=== PATIENT | female | born 1970 | race African-American/Black ===

== ENCOUNTER 2020-09-10 08:16 | Outpatient (REF) | payer BC, SELFPAY | END 2020-09-10 08:17 | disposition home or self-care (01) | LOC: HO.LAB 08:16 | PROVIDERS: PCP Family Medicine Adult Medicine; Visit Provider Internal Medicine | DX: Z20.828 Contact with and (suspected) exposure to other viral communicable diseases (principal) | CPT/HCPCS: 87635 ==

== ENCOUNTER 2022-01-13 09:20 | Outpatient (REF) | payer BC, SELFPAY ==
[2022-01-13 11:20] LABS: Hemoglobin 13.8 g/dl (12.0-16.0); Mean Corpuscular HGB Conc 31.4 g/dl (31.0-35.0); Mean Corpuscular Hemoglobin 26.5 pg (27.0-33.0); Mean Corpuscular Volume 84.6 fL (80.0-98.0); Mean Platelet Volume 12.4 fL (9.4-12.3); Platelet Count 274 X10*3/uL (160-400); White Blood Count 5.9 X10*3/uL (4.8-10.8)
[2022-01-13 11:34] LABS: Estimated Average Glucose 131 mg/dL; Hemoglobin A1c % 6.2 %
[2022-01-13 11:53] LABS: Alanine Aminotransferase 17 U/L (0-31); Albumin Level 4.1 g/dL (3.5-5.0); Alkaline Phosphatase 62 U/L (39-117); Anion Gap 12 (12-20); Aspartate Amino Transferase 15 U/L (5-31); Bilirubin Total 1.1 mg/dL (0.0-1.0); Blood Urea Nitrogen 14 mg/dL (9-16); Calcium 9.1 mg/dL (8.4-10.2); Carbon Dioxide 26 mmol/L (22-29); Chloride 104 mmol/L (96-108); Cholesterol 163 mg/dL; Estimated Glomerular Filt Rate > 60; Glucose Fasting 104 mg/dL (60-99); HDL Cholesterol 35 mg/dL; LDL Cholesterol Calculated 108 mg/dl; Potassium 4.4 mmol/L (3.3-5.1); Sodium 138 mmol/L (135-145); Total Protein 7.1 g/dL (6.5-8.0); Triglycerides 101 mg/dL
[2022-01-13 11:56] LABS: TSH reflex Free T4 0.86 uIU/mL (0.32-4.0)
== END 2022-01-13 09:21 | disposition home or self-care (01) ==
LOC: HO.HMGCLDS 09:20
PROVIDERS: PCP Physician Assistant; Visit Provider Physician Assistant
DX: Z13.29 Encounter for screening for other suspected endocrine disorder (principal); Z13.220 Encounter for screening for lipoid disorders; Z13.1 Encounter for screening for diabetes mellitus
CPT/HCPCS: 36415; 80053; 80061; 83036; 84443; 85027

== ENCOUNTER 2022-02-06 07:26 | Outpatient (REF) | payer BC, SELFPAY ==
--- NOTE | ~2022-02-06 | MM_ITS ---
EXAMINATION: MM SCREENING DIGITAL BREAST TOMOSYNTHESIS, BILATERAL CLINICAL INFORMATION: Screening. Asymptomatic. The lifetime risk of breast cancer based on the Tyrer-Cuzick Model is 8%. COMPARISON: Mammography: 10/19/2018, 08/22/2017, 07/21/2016 TECHNIQUE: Digital breast tomosynthesis is performed in both the craniocaudal and mediolateral oblique views along with computer-aided detection (CAD). Synthesized 2D images are generated from the tomosynthesis. FINDINGS: The breasts are almost entirely fatty (ACR BI-RADS breast composition Category a). There are no significant masses, abnormal calcifications, or other abnormalities. Background stromal markings are stable. No developing density. No significant changes. MM/MM tomosynthesis screening BI IMPRESSION: No mammographic evidence of malignancy. ASSESSMENT: BI-RADS 1: Negative RECOMMENDATION: Routine annual mammography screening. This patient's information was entered into a reminder system with a target due date for their next mammogram.
== END 2022-02-06 07:27 | disposition home or self-care (01) ==
LOC: HO.MAMMO 07:26
PROVIDERS: PCP Physician Assistant; Visit Provider Physician Assistant
DX: Z12.31 Encounter for screening mammogram for malignant neoplasm of breast (principal)
CPT/HCPCS: 77063; 77067

== ENCOUNTER → 2022-02-27 07:58 | Outpatient (BNVA) | payer BC, SELFPAY | PROVIDERS: PCP Physician Assistant; Referring Provider Physician Assistant; Visit Provider Physician Assistant | DX: Z13.89 Encounter for screening for other disorder (principal) ==

== ENCOUNTER 2022-05-30 09:56 | Day surgery (SDC) | payer BC, SELFPAY ==
--- NOTE | 2022-05-29 09:38 | HO.ANESPROP2 ---
Documented by User: Jayla Lorenz NP 05/29/22 09:54 HPI - Anesthesia Eval Consult details Narrative: 51yo F for Colonoscopy PMFSH Active Problems Active Problems: All Active Problems (Updated 02/27/22 @ 08:29 by Yuly Leon PA-C) Keratosis (Acute) Breast cancer screening (Acute) Colon cancer screening (Acute) Obese (Acute) Screening for hypothyroidism (Acute) Screening for hypercholesterolemia (Acute) Screening for diabetes mellitus (DM) (Acute) Annual physical exam (Acute) Bronchitis (Acute) Motion sickness (Acute) Surgical History Surgical History History of tubal ligation Social History Social History Housing: House Alcohol intake: current Alcohol intake frequency: holidays/special occasions only Patient Tobacco Use Status: Never used Tobacco e-Cigarette/Vaping Use: Never Used Second Hand Smoke Exposure: Yes Advance Directives: No Advance Directives Information Provided: Yes service: No Current occupational status: employed 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 Cognitive needs: No Hearing needs: No Vision needs: Yes (glasses) Meds Allergies Allergy/AdvReac Type Severity Reaction Status Date / Time No Known Allergies Allergy Verified 02/27/22 08:12 [No Known Allergies*] Home Medications Medication Instructions Recorded Confirmed Last Taken Type levonorgestrel 20 mcg/24 hours (7 intrauterine 01/07/22 02/27/22 Unknown History yrs) 52 mg intrauterine device (Mirena) Exam Exam Date and Time: May 29, 2022 0938 Pertinent Lab Results Pertinent Lab Results: Laboratory Tests 01/13/22 01/13/22 09:25 09:25 WBC 5.9 Hgb 13.8 Hct 44.0 Plt Count 274 Sodium 138 Potassium 4.4 Chloride 104 Carbon Dioxide 26 BUN 14 Creatinine 0.92 Assessment and Plan Assessment Anesthesia Assessment: Chart Reviewed Documented by User: Daphne Guerra MD 05/30/22 11:03 [facility] Family History Family history of problems with anesthesia: No Surgical History Surgical History History of tubal ligation History of Problems with Anesthesia: No Social History Social History Housing: House Alcohol intake: current Alcohol intake frequency: holidays/special occasions only Patient Tobacco Use Status: Never used Tobacco e-Cigarette/Vaping Use: Never Used Second Hand Smoke Exposure: Yes Advance Directives: No Advance Directives Information Provided: Yes service: No Current occupational status: employed 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 Cognitive needs: No Hearing needs: No Vision needs: Yes (glasses) Meds Allergies Allergy/AdvReac Type Severity Reaction Status Date / Time No Known Allergies Allergy Verified 02/27/22 08:12 [No Known Allergies*] Home Medications Medication Instructions Recorded Confirmed Last Taken Type levonorgestrel 20 mcg/24 hours (7 intrauterine 01/07/22 02/27/22 Unknown History yrs) 52 mg intrauterine device (Mirena) Exam Airway Mallampati Class: II TM Dist: >3cm Neck ROM: Full Partial: Upper Heart: rrr Lungs: cta Assessment and Plan Assessment Anesthesia Assessment: Anesthesia Plan Discussed Final Anesthetic Review Family History of Problems with Anesthesia: No History of Problems with Anesthesia: No NPO: Yes ASA Class: II Final Preanesthetic Review: No Changes in Pt Med Stat, Meds/Allgs Chart Reviewed and Consent Obtained/Reviewed Patient Risk: Intermediate Procedure Risk: Intermediate Anesthetic Plan Anesthetic Plan: MAC: Disposition: Standard PACU
[2022-05-30 10:36] VITALS: BMI 40.7
[2022-05-30 10:45] VITALS: BP 134/100; PULSE 79; RESP 16; TEMP 36.2; O2SAT 98
--- NOTE | 2022-05-30 11:00 | MHC.SHP ---
Pre-Procedural Eval Section A Date of Service: 05/30/22 The patient is an INPATIENT: No The History & Physical has been completed within 30 days and I have reviewed it.: No Section B Chief Complaint: screening Details of Present Illness: Colon cancer screening, family history not known since patient is adopted Relevant Family History (Specify if Yes): No Relevant Social History: None Present Medications: see Short Stay Collaborative assessment Medical History: Significant History (Obesity) History of Previous Operations: Relevant previous surgery/procedure and date(s) (History of tubal ligation) Allergies: Allergies Allergy/AdvReac Type Severity Reaction Status Date / Time No Known Allergies Allergy Verified 02/27/22 08:12 [No Known Allergies*] Review of Systems Sugical H&P ROS: Negative: Constitution, Cardiovascular, Respiratory and Gastrointestinal Exam Surgical H&P Exam: Normal: Heart, Normal: Lungs, Normal: Extremities and Normal: Abdomen Plan Diagnosis/Plan: Unchanged I have reviewed the history and physical and performed a pertinent physical examination on my patient. No changes have occurred unless specified.
[2022-05-30] MEDS: Lactated Ringers 1,000 ML 100 ML IVCONT (11:11)
--- NOTE | 2022-05-30 11:14 | PM.OP ---
Brief Operative Note Date of Service: 05/30/22 Pre-op diagnosis: COLON CANCER SCREENING Post-op diagnosis: other (Diverticulosis, hemorrhoids, melanosis coli) Procedure: COLONOSCOPY TILL CECUM WITH BIOPSIES Consent: Indications for the procedure and potential complications of bleeding, perforation, reaction to medications and missed diagnosis were discussed with the patient and informed consent was obtained. Instrument: Olympus PCF H 190 L variable stiffness pediatric colonoscope and Olympus CF H 190 L variable stiffness adult colonoscope Monitoring: Vital signs and clinical assessment, intermittent blood pressure monitoring, continuous EKG monitoring, Pulse oximetry and Carbon Dioxide monitoring were done throughout the procedure. Colon withdrawl time was 21 minutes. Procedure: The patient was placed in the left lateral decubitis position and pre-procedure medications were administered. After a digital rectal examination of the ano-rectum, the video colonoscope was inserted into the rectum and advanced through the colon to the mid AC. The colonoscope was removed and an adult colonoscope was passed to the ICV. Cecum was partially visualized across the ICV. The colonoscope was slowly withdrawn in a retrograde panoramic fashion and the colon mucosa was carefully examined including a retroflexed view of the rectum. Findings and interventions are described below. Procedure Difficulty: Colon was long and tortuous and there was recurrent loop formation. Patient was placed in the supine position with left lower quadrant pressure. Findings: Terminal Ileum: Not evaluated Cecum: Normal Ascending Colon: A ? polyp versus fold in the mid AC - biopsies were obtained. Mild melanosis Coli throughout the colon Transverse Colon: Mild melanosis Coli throughout the colon Descending Colon: Mild melanosis Coli throughout the colon - biopsies were obtained from the left colon. Sigmoid Colon: Moderate diverticulosis Rectum: Normal Ano-rectum: Small internal hemorrhoids Colon preparation: Excellent Impression and Post Procedure Diagnosis: Colonoscopy Findings: A ? polyp versus fold in the mid AC - biopsies were obtained. Mild melanosis Coli throughout the colon - biopsies were obtained from the left colon. Moderate diverticulosis seen in the sigmoid colon Small hemorrhoids on retroflexed exam. Plan: Await pathology results Patient has an appointment on 06/12/22 in the GI Clinic with CORI Zepeda. Repeat Colonoscopy interval based on path results - in 6 months if biopsies from AC show adenomatous tissue and 5 yrs since FH is not known. Above findings were reviewed with the patient Melanosis Coli and diverticulosis handouts were given in the discharge area Surgeon: Lilly Roy MD Anesthesia: MAC (Dr Rosa) Was an Manual Lathe Machinist used for this Procedure?: Yes Manual Lathe Machinist: Rosa Nowak Estimated blood loss (mL): 0 Pathology: other (A. ascending colon polyp vs. fold B. random left colon bxs, R/O melanosis coli) Condition: stable Disposition: PACU
[2022-05-30 11:58] VITALS: BP 132/64; PULSE 86; RESP 16; TEMP 36.6; O2SAT 98
[2022-05-30 12:12] VITALS: BP 148/95; PULSE 89; RESP 16; TEMP 36.6; O2SAT 100
--- NOTE | 2022-05-30 17:44 | W.PM.OPN ---
Operative Note Operative Note Date of Service: 05/30/22 Narrative: Pre-op diagnosis: COLON CANCER SCREENING Post-op diagnosis:?other (Diverticulosis, hemorrhoids, melanosis coli) Procedure: COLONOSCOPY TILL CECUM WITH BIOPSIES Consent: Indications for the procedure and potential complications of bleeding, perforation, reaction to medications and missed diagnosis were discussed with the patient and informed consent was obtained. Instrument: Olympus PCF H 190 L variable stiffness pediatric colonoscope and Olympus CF H 190 L variable stiffness adult colonoscope Monitoring: Vital signs and clinical assessment, intermittent blood pressure monitoring, continuous EKG monitoring, Pulse oximetry and Carbon Dioxide monitoring were done throughout the procedure. Colon withdrawl time was 21 minutes. Procedure: The patient was placed in the left lateral decubitis position and pre-procedure medications were administered. After a digital rectal examination of the ano-rectum, the video colonoscope was inserted into the rectum and advanced through the colon to the mid AC. The colonoscope was removed and an adult colonoscope was passed to the ICV. Cecum was partially visualized across the ICV.? The colonoscope was slowly withdrawn in a retrograde panoramic fashion and the colon mucosa was carefully examined including a retroflexed view of the rectum. Findings and interventions are described below. Procedure Difficulty: Colon was long and tortuous and there was recurrent loop formation.? Patient was placed in the supine position with left lower quadrant pressure. Findings: Terminal Ileum: Not evaluated Cecum:? Normal Ascending Colon:? A ? polyp versus fold in the mid AC - biopsies were obtained. Mild melanosis Coli throughout the colon Transverse Colon:? Mild melanosis Coli throughout the colon Descending Colon:? Mild melanosis Coli throughout the colon - biopsies were obtained from the left colon. Sigmoid Colon:? Moderate diverticulosis Rectum:? Normal Ano-rectum:? Small internal hemorrhoids Colon preparation: Excellent ? Impression and Post Procedure Diagnosis: Colonoscopy Findings: ?A ? polyp versus fold in the mid AC - biopsies were obtained. Mild melanosis Coli throughout the colon - biopsies were obtained from the left colon. Moderate diverticulosis seen in the sigmoid colon Small hemorrhoids on retroflexed exam. Plan: Await pathology results Patient has an appointment on 06/12/22 in the GI Clinic with CORI Zepeda. Repeat Colonoscopy interval based on path results - in 6 months if biopsies from AC show? adenomatous tissue and 5 yrs since FH is not known. Above findings were reviewed with the patient Melanosis Coli and diverticulosis handouts were given in the discharge area Surgeon: Lilly Roy MD Anesthesia:?MAC (Dr Rosa) Was an Rubber Goods Inspector used for this Procedure?:?Yes Rubber Goods Inspector:?Rosa Nowak Estimated blood loss (mL):?0 Pathology:?other (A. ascending colon polyp vs. fold? B. random left colon bxs, R/O melanosis coli) Condition:?stable Disposition:?PACU
== END 2022-05-30 12:48 | disposition home or self-care (01) ==
PROVIDERS: PCP Physician Assistant; Visit Provider Internal Medicine Gastroenterology
PROC: 0DJD8ZZ Inspection of Lower Intestinal Tract, Via Natural or Artificial Opening Endoscopic (ICD-10-PCS; CPT 45378; principal; 2022-05-30 12:30)
DX: Z12.11 Encounter for screening for malignant neoplasm of colon (principal); K63.89 Other specified diseases of intestine; K57.30 Diverticulosis of large intestine without perforation or abscess without bleeding; K64.8 Other hemorrhoids; Z98.51 Tubal ligation status
CPT/HCPCS: 45380; 88305

== ENCOUNTER 2022-11-19 13:50 | Outpatient (REF) | payer BC, SELFPAY ==
[2022-11-22 03:04] LABS: HPV mRNA E6/E7 rflx Not Detected (Not Detected)
== END 2022-11-19 13:51 | disposition home or self-care (01) ==
LOC: HO.LNP 13:50
PROVIDERS: PCP Physician Assistant; Visit Provider Advanced Practice Midwife
DX: Z01.419 Encounter for gynecological examination (general) (routine) without abnormal findings (principal); Z11.51 Encounter for screening for human papillomavirus (HPV)
CPT/HCPCS: 87624; 88142

== ENCOUNTER 2023-02-12 07:42 | Outpatient (REF) | payer BC, SELFPAY ==
--- NOTE | ~2023-02-12 | MM_ITS ---
EXAMINATION: MM SCREENING DIGITAL BREAST TOMOSYNTHESIS, BILATERAL CLINICAL INFORMATION: Screening. Asymptomatic. The lifetime risk of breast cancer based on the Tyrer-Cuzick Model is 7%. COMPARISON: Mammography: February 06, 2022 and studies dating back to July 21, 2016. TECHNIQUE: Digital breast tomosynthesis is performed in both the craniocaudal and mediolateral oblique views along with computer-aided detection (CAD). Synthesized 2D images are generated from the tomosynthesis. FINDINGS: The breasts are almost entirely fatty (ACR BI-RADS breast composition Category a). There are no significant masses, abnormal calcifications, or other abnormalities. MM/MM tomosynthesis screening BI IMPRESSION: No significant changes from prior exam. ASSESSMENT: BI-RADS 1: Negative RECOMMENDATION: Routine annual mammography screening. This patient's information was entered into a reminder system with a target due date for their next mammogram.
== END 2023-02-12 07:43 | disposition home or self-care (01) ==
LOC: HO.MAMMO 07:42
PROVIDERS: PCP Physician Assistant; Visit Provider Physician Assistant
DX: Z12.31 Encounter for screening mammogram for malignant neoplasm of breast (principal)
CPT/HCPCS: 77063; 77067

== ENCOUNTER 2023-08-18 13:14 | Outpatient (AMB) | payer BC, SELFPAY ==
[2023-08-18 13:24] VITALS: BP 134/78; PULSE 88; RESP 17; O2SAT 98; BMI 41.7
--- NOTE | 2023-08-18 13:24 | MHC.PC.OV ---
Vital Signs 08/18/23 13:24 Height 5 ft 3 in Weight 235 lb 8 oz BMI 41.7 BP 134/78 Blood Pressure Location Lt brachial Position Sitting Respiration 17 Pulse 88 Pulse Source Pulse Oximeter Pulse Oximetry (%) 98 Oxygen Delivery Method Room Air Intake Visit Reasons: Annual Intake Note: Patient is here today for a physical. Patient Financial Specialist Required: No Accompanied by: Self / Same As Patient Allergies No Known Allergies [No Known Allergies*] Allergy (Verified 08/18/23 13:35) Medication List - Last Reconciled 08/18/23 by Rachid Skelton PA-C No Known Home Meds Tobacco use date assessed: 08/18/23 Dental Screening Dental Screen Date: 08/18/23 Did you have a dental visit in the last 12 months?: Yes Did you have a dental problem in the last 6 months where you did not have access to dental care?: No Was dental information given to patient?: Patient has dentist HPI Annual HPI Details Patient is a 52-year-old female here today for routine annual physical. Patient has a past history significant for obesity. Concerns--> reports having toenail fungus and would like to see a sawmill production worker . Also has hyperpigmented lesions on face and would like to see a coder for evaluation of these hyperpigmented lesions .. Obesity: She does understand her BMI is over 30 and is willing to be more physically active an better eating habits to reduce her weight. Vaccine: UTD with COVID , up-to-date with tetanus vaccine , needs Shingrex and flu. Declines flu seen Colon cancer screening: Colonoscopy done in 2021 polyp found hyperplastic- repeat in 5 years Mammogram: Done in January of 2023 BI-RADS 1 JUNIOR DATABASE ADMINISTRATOR: Does see a JUNIOR DATABASE ADMINISTRATOR in [place]- reports having PAP recently which was normal [facility] Medical History (Updated 08/18/23 @ 13:54 by Rachid Skelton PA-C) Diverticular disease Surgical History History of tubal ligation Social History Housing: House Alcohol intake: current Alcohol intake frequency: holidays/special occasions only Patient Tobacco Use Status: Never used Tobacco e-Cigarette/Vaping Use: Never Used Second Hand Smoke Exposure: Yes service: No Current occupational status: employed 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 1. Little interest or pleasure in doing things: not at all 2. Feeling down, depressed, or hopeless: nearly every day 3. Trouble falling or staying asleep, or sleeping too much: nearly every day 4. Feeling tired or having little energy: nearly every day 5. Poor appetite or overeating: nearly every day 6. Feeling bad about yourself - or that you are a failure or have let yourself or your family down: more than half the days 7. Trouble concentrating on things, such as reading the newspaper or watching television: more than half the days 8. Moving or speaking so slowly that other people could have noticed. Or the opposite - being so fidgety or restless that you have been moving around a lot more than usual: not at all 9. Thoughts that you would be better off or of hurting yourself in some way: not at all Total score: 16 Depression Screening Interpretation: Positive 96241 - PHQ-9 Billing: Yes Source: Developed by Drs. Andrew Us, Pallavi Guerrero, Epi Castellanos and colleagues, with an educational david from [employer]. Thrive Questionnaire Date Thrive assessed: 08/18/23 I am a: Patient What is your living situation today?: I have a steady place to live Within the past 12 months, did the food you bought not last and you didn't have the money to get more?: Never true Within the past 12 months, did you worry whether your food would run out before you got money to buy more?: Never true Do you have trouble paying for medicines?: No Do you have trouble getting transportation to medical appointments?: No Do you have trouble paying your heating and electricity bill?: No Do you have trouble taking care of your child, family member or friend?: No Do you have trouble with day-to-day activities such as bathing, preparing meals, shopping, managing finances, etc.?: No Are you currently unemployed and looking for a job?: No Are you interested in more education?: No Please select the resources that you would like help with: None Currently or been in a relationship where the following occur: no concerns reported AUDIT C Alcohol Use Questionnaire (AUDIT-C) 1. How often do you have a drink containing alcohol?: Monthly or less 2. How many drinks containing alcohol do you have on a typical day when you are drinking?: 1 or 2 3. How often do you have six or more drinks on one occasion?: Never Total Score: 1 JIM-7 AMB Questionnaire JIM-7 Date JIM - 7 assessed: 08/18/23 Feeling nervous, anxious, or on edge: 2 = More than half the days Not being able to stop or control worryin = Nearly every day Worrying too much about different things: 2 = More than half the days Trouble relaxin = More than half the days Being so restless that it is hard to sit still: 1 = Several days Becoming easily annoyed or irritable: 2 = More than half the days Feeling afraid as if something awful might happen: 3 = Nearly every day Total JIM-7 score (0-4 normal; 5-9 mild; 10-14 moderate; 15-21 severe): 15 Source: Developed by Drs. Andrew Us, Pallavi Guerrero, Epi Castellanos and colleagues, with an educational david from [employer]. JIM-7 Assessment Billing JIM-7 Assessment Tool: JIM-7 Assessment 05654 Review of Systems Const Denies body aches, Denies chills, Denies excessive sweating, Denies fatigue, Denies fever(s) and Denies headache(s) Eyes Denies blurry vision ENT Denies dysphagia, Denies vertigo, Denies dizziness, Denies headache(s), Denies hearing loss and Denies tinnitus Card Denies chest pain, Denies chest pain with activity, Denies syncope, Denies irregular heart rhythm and Denies dyspnea Resp Denies chest congestion, Denies cough, Denies hemoptysis, Denies dyspnea and Denies wheezing GI Denies abdominal pain, Denies melena, Denies hematochezia, Denies coffee ground emesis, Denies dysphagia, Denies diarrhea, Denies nausea and Denies vomiting Denies urinary frequency, Denies dysuria, Denies urinary hesitancy and Denies urinary urgency Musc Denies arthralgias, Denies limited range of motion, Denies muscle cramps and Denies muscle weakness Skin/Breast Denies rash and Denies skin ulcer Neuro Denies Abnormal speech present, Denies confusion, Denies vertigo, Denies dizziness, Denies syncope, Denies headache(s), Denies memory loss and Denies seizure-like activity Psych Denies anxiety, Denies confusion, Denies depression, Denies memory loss, Denies panic attacks and Denies paranoia Endo Denies excessive sweating, Denies fatigue, Denies flushing, Denies polydipsia and Denies polyuria Aller/Immun Denies wheezing Physical exam (Primary Care) Vital Signs: Last Vital Signs Pulse 88 08/18/23 13:24 Resp 17 08/18/23 13:24 BP 134/78 08/18/23 13:24 Pulse Ox 98 08/18/23 13:24 Oxygen Delivery Method Room Air 08/18/23 13:24 BMI result Body Mass Index 41.7 BMI Assessment/Plan discussion: High Tobacco/Smoking Status: Tobacco use Status Tobacco use date assessed 08/18/23 08/18/23 13:34 Patient Tobacco Use Status Never used Tobacco 08/18/23 13:34 e-Cigarette/Vaping Use Never Used 08/18/23 13:34 PHQ-9: PHQ-9 Score PHQ-9: Total score 16 08/18/23 13:34 Depression Screening Interpretation: Positive Thrive Assessment: Date of Thrive Assessment Date Thrive assessed 08/18/23 08/18/23 13:34 Currently or been in a relationship where the following occur: no concerns reported Const Other: OBESE General: cooperative, comfortable, no acute distress, alert and awake; No confusion Orientation/consciousness: oriented to person, oriented to place, patient oriented x3 and No confusion HENMT Head: Yes normocephalic Ears: external ears normal and TM's normal bilaterally Face and sinus: No sinus tenderness Mouth: Normal oral and palatal mucosa present and tongue normal Teeth and gingiva: dentition normal and gingiva normal Throat: Yes posterior oropharynx normal, Yes tonsils normal and Yes uvula midline Eyes Conjunctivae: conjunctivae normal Sclerae: sclerae normal Pupils: Equal, round and reactive pupils present EOM: EOMs intact bilaterally Direct Ophthalmoscopy: No no photophobia Neck Neck: Yes no lymphadenopathy, No tender and Yes no JVD Thyroid: Thyroid normal Carotids: no bruits Chest Chest palpation & inspection: no tenderness Resp Effort & Inspection: normal respiratory effort, no audible wheezes, not labored and no stridor Auscultation: no crackles, no rales, no rhonchi and no wheezes Cardio Jugular venous distension: no JVD Rate: regular rate, not bradycardic and not tachycardic Rhythm: regular rhythm Bruits: no carotid bruits Peripheral pulses: Peripheral pulses 2+ throughout GI Inspection: Yes normal to inspection, No abdominal wall ecchymosis and No visible herniation Palpation (GI): Soft to palpation, nontender, no guarding, not rigid and No hepatosplenomegaly present Auscultation: normoactive bowel sounds General: Yes no CVA tenderness Back/Spine/Pelvis Back: no CVA tenderness and No back tenderness Cervical Spine: cervical ROM normal Thoracic/Lumbar Spine: thoracic and lumbar spine normal to inspection, straight leg raise negative bilaterally, No thoraco-lumbar ROM limited and No lumbar spinal tenderness Skin Lesions: no lesions Rashes: no rashes Wounds: no wounds Neuro General: oriented to person, oriented to place, patient oriented x3, CN's II-XI intact bilaterally and No confusion Cranial nerves: Yes Equal, round and reactive pupils present and Yes Normal accommodation reflex present Cognition (Neuro): normal cognition Speech: No Abnormal speech present Gait exam (Neuro): Normal gait present Motor exam (neuro): 5/5 motor strength present throughout Extrem Right upper extremity: full ROM; no cyanosis Left upper extremity: full ROM; no cyanosis Right lower extremity: no edema Left lower extremity: no edema Psych Appearance: grossly normal Mental Status: mental status grossly normal Affect: normal affect Attitude: cooperative Thought process: Normal thought process present Results AMB Hemoglobin A1c AMB Hemoglobin A1c 6.1 % Last Edit by DEREK Rodriguez on 08/18/23 13:35 Results Reviewed Results Reviewed: Laboratory Last Values Hgb A1c (Clinic) 6.1 % (4.0-6.0) H 08/18/23 13:34 Assessment and Plan Assessment & Plan (1) Annual physical exam: Code(s): Z00.00 - Encounter for general adult medical examination without abnormal findings (2) Obese: Code(s): E66.9 - Obesity, unspecified Qualifiers: Obesity type: due to excess calories Obesity classification: adult class 3 (BMI >= 40) Serious obesity comorbidity presence: without serious comorbidity Body mass index: BMI 40.0-44.9 Qualified Code(s): E66.01 - Morbid (severe) obesity due to excess calories; Z68.41 - Body mass index [BMI] 40.0-44.9, adult Plan: Have noted small amount of weight loss since last office visit.. Patient understands her BMI is over 30 will be being more physically active and better eating habits to reduce her weight. (3) Impaired glucose metabolism: Code(s): R73.09 - Other abnormal glucose Plan: Patient's fasting blood sugar remains slightly elevated. A1c is 6.1. She is not interested in starting any medication to help blood sugars.. She will work on being more physically active and adapting to better eating habits to reduce her weight. (4) JIM (generalized anxiety disorder): Code(s): F41.1 - Generalized anxiety disorder Plan: Patient's JIM-7 score positive for moderate anxiety. New since taking care of her grandchild whom is struggling in school. She is not interested in any medication or talking to a mental health therapist at this time. She hopes this gets better over time. Orders: Orders Comprehensive Spiro. Panel Fast Today R73.09 - Other abnormal glucose AMB Hemoglobin A1c Today Z13.1 - Encounter for screening for diabetes mellitus Coding Level of Care Code Est Pt Prev Care 40-64y(67526) Diagnoses Annual physical exam Z00.00 Class 3 severe obesity due to excess calories without serious comorbidity with body mass index (BMI) of 40.0 to 44.9 in adult E66.01; Z68.41 Obesity type: due to excess calories Obesity classification: adult class 3 (BMI >= 40) Serious obesity comorbidity presence: without serious comorbidity Body mass index: BMI 40.0-44.9 Impaired glucose metabolism R73.09 JIM (generalized anxiety disorder) F41.1 Additional Codes JIM-7 Assessment Billing - JIM-7 Assessment Tool: JIM-7 Assessment 44280 ([id number])
== END 2023-08-18 13:56 | disposition home or self-care (01) ==
PROVIDERS: Visit Provider Physician Assistant
DX: Z00.00 Encounter for general adult medical examination without abnormal findings (principal); E66.01 Morbid (severe) obesity due to excess calories; Z68.41 Body mass index [BMI] 40.0-44.9, adult; R73.09 Other abnormal glucose; F41.1 Generalized anxiety disorder
CPT/HCPCS: 83036; 99396

== ENCOUNTER 2023-09-22 06:39 | Outpatient (REF) | payer BC, SELFPAY ==
[2023-09-22 11:33] LABS: Alanine Aminotransferase 14 U/L (0-31); Alkaline Phosphatase 57 U/L (39-117); Anion Gap 13 (12-20); Aspartate Amino Transferase 16 U/L (5-31); Bilirubin Total 0.8 mg/dL (0.0-1.0); Blood Urea Nitrogen 14 mg/dL (9-16); Calcium 9.1 mg/dL (8.4-10.2); Carbon Dioxide 24 mmol/L (22-29); Chloride 108 mmol/L (96-108); Estimated Glomerular Filt Rate > 60; Glucose Fasting 108 mg/dL (60-99); Potassium 3.9 mmol/L (3.3-5.1); Sodium 141 mmol/L (135-145)
== END 2023-09-22 06:40 | disposition home or self-care (01) ==
LOC: HO.HMGCLDS 06:39
PROVIDERS: PCP Physician Assistant; Visit Provider Physician Assistant
DX: R73.09 Other abnormal glucose (principal)
CPT/HCPCS: 36415; 80053

== ENCOUNTER 2023-11-24 08:45 | Outpatient (AMB) | payer BC, SELFPAY ==
--- NOTE | 2023-11-24 08:48 | MHC.OFFVIS ---
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 She is doing well with no concerns. Attempting to eat a healthy diet with calcium and vitamin D and stays active with exercise. Currently sexually active. Denies any vaginal dryness or irritation. Has an Mirena IUD for cycle control, no bleeding. Wants it replaced if needed, inserted 2014. STI testing offered; she declines. Last pap smear; 2021. Last mammogram; 2022. Colonoscopy is UTD. FH unknown-adopted. 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 Cognitive needs: No Hearing needs: No Vision needs: Yes (glasses) Female Reproductive History Menstrual Age of Menarche: 10 control method: progestin IUCD (Mirena 04/2015) and permanent sterilization Permanent Sterilization: BTL Total pregnancies: 3 Full term: 2 Number of Living Children: 2 Date of last pap smear: 11/19/22 (neg pap and hpv) Date of Mammogram: 02/12/23 (Birad 1) Review of Systems Const All systems reviewed & are unremarkable except as noted in HPI and below Reports as per HPI Eyes Reports no additional complaints ENT Reports no additional complaints Card Reports no additional complaints Resp Reports no additional complaints GI Reports as per HPI and Reports no additional complaints Reports as per HPI Musc Reports no additional complaints Skin/Breast Reports as per HPI Neuro Reports no additional complaints Psych Reports no additional complaints Endo Reports no additional complaints Srinath/Lymph Reports no additional complaints Aller/Immun Reports no additional complaints Physical Exam Vital Signs: Last Vital Signs BP 106/74 11/24/23 08:50 BMI result Body Mass Index 42.0 Const General: cooperative, healthy appearing, no acute distress, well developed and alert Orientation/consciousness: patient oriented x3 HEENT Head: Yes normal to inspection Eyes General: appearance normal, both eyes and all related structures Neck Neck: Yes normal visual inspection Thyroid: Thyroid normal Chest Chest palpation & inspection: normal inspection of the chest and other (no puckering, dimpling, peau de orange, retraction, discharge, masses) Breast/axilla inspection: normal inspection of the breasts Breast/axilla palpation: normal palpation of the breasts Resp Effort & Inspection: normal respiratory effort GI Inspection: Yes normal to inspection Palpation (GI): Soft to palpation Rectal Exam - Female: deferred General: Yes bladder normal to palpation External Female Exam: normal external appearance and normal appearance of the urethra Speculum Exam - Vagina: normal appearance of the vagina, normal palpation and normal vaginal discharge Speculum Exam - Cervix: normal appearance of the cervix, normal palpation and Other cervical findings present (IUD strings present) Bimanual exam- vagina & uterus: normal bimanual exam, normal palpation, uterine size normal, bladder normal to palpation, normal palpation and non-tender Bimanual Exam- Adnexa, other: no masses Skin General skin exam: no rashes or lesions noted Rashes: no rashes Neuro General: patient oriented x3 Cognition (Neuro): normal cognition Extrem General: Yes normal to inspection Psych Attitude: cooperative Thought process: Normal thought process present Assessment & Plan Assessment & Plan (1) Encounter for well woman exam with routine gynecological exam: Code(s): Z01.419 - Encounter for gynecological examination (general) (routine) without abnormal findings Plan Discussed: Current recommendations for pap smears per ASCCP guidelines. Breast awareness, periodic self breast exams and yearly mammogram. Maintain a healthy lifestyle, well balanced diet including Calcium 1,200 mg and Vitamin D 600 IU daily, and routine exercise. All of her questions and concerns were addressed to the best of my ability and shared decision making. She is agreeable to the plan of care-FSH today. Advise removal of current IUD due to the expiration will discuss once labs results are back whether she would need another IUD. RTO in 1 year for annual carnival worker exam. This note is constructed using voice recognition software. While every effort has been made to ensure accuracy, nuclear unit operator errors may have been included. Orders: Orders Follicle Stimulating Hormone Today N91.2 - Amenorrhea, unspecified Coding Level of Care Code Est Pt Prev Care 40-64y(01338) Diagnoses Encounter for well woman exam with routine gynecological exam Z01.419
[2023-11-24 08:50] VITALS: BP 106/74; BMI 42.0
== END 2023-11-24 09:29 | disposition home or self-care (01) ==
PROVIDERS: Visit Provider Advanced Practice Midwife
DX: Z01.419 Encounter for gynecological examination (general) (routine) without abnormal findings (principal)
CPT/HCPCS: 99396

== ENCOUNTER 2023-11-24 08:45 | Outpatient (REF) | payer BC, SELFPAY ==
[2023-11-25 07:23] LABS: Follicle Stimulating Hormone 33.9 mIU/mL
== END 2023-11-24 08:46 | disposition home or self-care (01) ==
LOC: HO.LAB 08:45
PROVIDERS: PCP Physician Assistant; Visit Provider Advanced Practice Midwife
DX: N91.2 Amenorrhea, unspecified (principal)
CPT/HCPCS: 36415; 83001

== ENCOUNTER 2024-02-22 07:10 | Outpatient (REF) | payer BC, SELFPAY | END 2024-02-22 07:11 | disposition home or self-care (01) | LOC: HO.MAMMO 07:10 | PROVIDERS: PCP Physician Assistant; Visit Provider Physician Assistant | DX: Z12.31 Encounter for screening mammogram for malignant neoplasm of breast (principal) | CPT/HCPCS: 77063; 77067 ==

== ENCOUNTER → 2024-02-22 07:30 | Outpatient (BNV) | payer BC, SELFPAY | PROVIDERS: PCP Physician Assistant; Visit Provider Radiology Diagnostic Radiology | DX: Z12.31 Encounter for screening mammogram for malignant neoplasm of breast (principal) | CPT/HCPCS: 77063; 77067 ==

== ENCOUNTER 2024-08-23 07:47 | Outpatient (AMB) | payer BC, SELFPAY ==
[2024-08-23 08:02] VITALS: BP 126/80; PULSE 78; O2SAT 98; BMI 42.2
--- NOTE | 2024-08-23 08:02 | A.OFFPC_ITS ---
Vital Signs 08/23/24 08:02 Height 5 ft 3 in Weight 238 lb 5.115 oz BMI 42.2 BP 126/80 Blood Pressure Location Lt brachial Position Sitting Pulse 78 Pulse Source Pulse Oximeter Pulse Oximetry (%) 98 Oxygen Delivery Method Room Air Intake Visit Reasons: Annual Exam Intake Note: Patient here for an annual physical exam Teletypesetter Monitor Required: No Accompanied by: Self / Same As Patient Allergies No Known Allergies [No Known Allergies*] Allergy (Verified 08/23/24 08:07) Medication List - Last Reconciled 08/23/24 by Rachid Skelton PA-C levonorgestrel (Mirena) intrauterine Tobacco use date assessed: 08/23/24 Dental Screening Dental Screen Date: 08/23/24 Did you have a dental visit in the last 12 months?: Yes Did you have a dental problem in the last 6 months where you did not have access to dental care?: No Was dental information given to patient?: Patient has dentist HPI Annual Exam HPI Details Patient is a 53-year-old female here today for routine annual physical. Patient has a past history significant for obesity. Concerns--> no concerns today .. Impaired glucose metabolism: Most recent fasting blood sugar slightly elevated A1c is 6.1. She does understand her A1c is in a prediabetic range and will work on diet and exercise more consistently. Will recheck fasting blood sugar and A1c. .. Obesity: She does understand her BMI is over 30 and is willing to be more physically active an better eating habits to reduce her weight. Vaccine: UTD with COVID , up-to-date with tetanus vaccine , needs Shingrex- considering , Declines flu vaccine at this time will get it later in August. .. Colon cancer screening: Colonoscopy done in 2021 polyp found hyperplastic- repeat in 5 years Mammogram: Done in February of 2024 BI-RADS 1 AUTOMATION ENGINEERING MANAGER: Does see a AUTOMATION ENGINEERING MANAGER in [place]- reports having PAP recently which was normal [facility] Medical History Diverticular disease Surgical History History of tubal ligation Family History Unknown Adopted person Social History Housing: House Alcohol intake: current Alcohol intake frequency: holidays/special occasions only Patient Tobacco Use Status: Never used Tobacco e-Cigarette/Vaping Use: Never Used Second Hand Smoke Exposure: Yes service: No Current occupational status: employed 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 1. Little interest or pleasure in doing things: several days 2. Feeling down, depressed, or hopeless: several days 3. Trouble falling or staying asleep, or sleeping too much: several days 4. Feeling tired or having little energy: several days 5. Poor appetite or overeating: not at all 6. Feeling bad about yourself - or that you are a failure or have let yourself or your family down: not at all 7. Trouble concentrating on things, such as reading the newspaper or watching television: not at all 8. Moving or speaking so slowly that other people could have noticed. Or the opposite - being so fidgety or restless that you have been moving around a lot more than usual: not at all 9. Thoughts that you would be better off or of hurting yourself in some way: not at all Total score: 4 Depression Screening Interpretation: Positive Depression Screening Follow-up: Existing condition Depression Screening Done: Yes 64129 - PHQ-9 Billing: Yes Source: Developed by Drs. Andrew Us, Pallavi Guerrero, Epi Castellanos and colleagues, with an educational david from [employer]. Thrive Questionnaire Date Thrive assessed: 08/23/24 I am a: Patient What is your living situation today?: I have a steady place to live Within the past 12 months, did the food you bought not last and you didn't have the money to get more?: Never true Within the past 12 months, did you worry whether your food would run out before you got money to buy more?: Never true Do you have trouble paying for medicines?: No Do you have trouble getting transportation to medical appointments?: No Do you have trouble paying your heating and electricity bill?: No Do you have trouble taking care of your child, family member or friend?: No Do you have trouble with day-to-day activities such as bathing, preparing meals, shopping, managing finances, etc.?: No Are you currently unemployed and looking for a job?: No Are you interested in more education?: No Please select the resources that you would like help with: None Currently or been in a relationship where the following occur: No concerns reported THRIVE Score: 0 AUDIT C Alcohol Use Questionnaire (AUDIT-C) 1. How often do you have a drink containing alcohol?: Monthly or less 2. How many drinks containing alcohol do you have on a typical day when you are drinking?: 1 or 2 3. How often do you have six or more drinks on one occasion?: Never Total Score: 1 JIM-7 AMB Questionnaire JIM-7 Date JIM - 7 assessed: 08/23/24 Feeling nervous, anxious, or on edge: 1 = Several days Not being able to stop or control worryin = Several days Worrying too much about different things: 1 = Several days Trouble relaxin = Several days Being so restless that it is hard to sit still: 1 = Several days Becoming easily annoyed or irritable: 1 = Several days Feeling afraid as if something awful might happen: 0 = Not at all Total JIM-7 score (0-4 normal; 5-9 mild; 10-14 moderate; 15-21 severe): 6 Source: Developed by Drs. Andrew Us, Pallavi Guerrero, Epi Castellanos and colleagues, with an educational david from [employer]. JIM-7 Assessment Billing JIM-7 Assessment Tool: JIM-7 Assessment 93193 Review of Systems Const Denies body aches, Denies chills, Denies excessive sweating, Denies fatigue, Denies fever(s) and Denies headache(s) Eyes Denies blurry vision ENT Denies dysphagia, Denies vertigo, Denies dizziness, Denies headache(s), Denies hearing loss and Denies tinnitus Card Denies chest pain, Denies chest pain with activity, Denies syncope, Denies irregular heart rhythm and Denies dyspnea Resp Denies chest congestion, Denies cough, Denies hemoptysis, Denies dyspnea and Denies wheezing GI Denies abdominal pain, Denies melena, Denies hematochezia, Denies coffee ground emesis, Denies dysphagia, Denies diarrhea, Denies nausea and Denies vomiting Denies urinary frequency, Denies dysuria, Denies urinary hesitancy and Denies urinary urgency Musc Denies arthralgias, Denies limited range of motion, Denies muscle cramps and Denies muscle weakness Skin/Breast Denies rash and Denies skin ulcer Neuro Denies Abnormal speech present, Denies confusion, Denies vertigo, Denies dizziness, Denies syncope, Denies headache(s), Denies memory loss and Denies seizure-like activity Psych Denies anxiety, Denies confusion, Denies depression, Denies memory loss, Denies panic attacks and Denies paranoia Endo Denies excessive sweating, Denies fatigue, Denies flushing, Denies polydipsia and Denies polyuria Aller/Immun Denies wheezing Physical exam (Primary Care) Vital Signs: Last Vital Signs Pulse 78 08/23/24 08:02 BP 126/80 08/23/24 08:02 Pulse Ox 98 08/23/24 08:02 Oxygen Delivery Method Room Air 08/23/24 08:02 BMI result Body Mass Index 42.2 BMI Assessment/Plan discussion: High BMI High, discussed plan: lifestyle, weight reduction, dietary and physical activity Tobacco/Smoking Status: Tobacco use Status Tobacco use date assessed 08/23/24 08/23/24 08:06 Patient Tobacco Use Status Never used Tobacco 08/23/24 08:06 e-Cigarette/Vaping Use Never Used 08/23/24 08:06 PHQ-9: PHQ-9 Score PHQ-9: Total score 4 08/23/24 08:06 Depression Screening Interpretation: Positive Depression Screening Follow-up: Existing condition Thrive Assessment: Date of Thrive Assessment Date Thrive assessed 08/23/24 08/23/24 08:06 Currently or been in a relationship where the following occur: No concerns reported Const General: cooperative, comfortable, no acute distress, alert and awake; No confusion Orientation/consciousness: oriented to person, oriented to place, patient oriented x3 and No confusion HENMT Head: Yes normocephalic Ears: external ears normal and TM's normal bilaterally Face and sinus: No sinus tenderness Mouth: Normal oral and palatal mucosa present and tongue normal Teeth and gingiva: dentition normal and gingiva normal Throat: Yes posterior oropharynx normal, Yes tonsils normal and Yes uvula midline Eyes Conjunctivae: conjunctivae normal Sclerae: sclerae normal Pupils: Equal, round and reactive pupils present EOM: EOMs intact bilaterally Direct Ophthalmoscopy: No no photophobia Neck Neck: Yes no lymphadenopathy, No tender and Yes no JVD Thyroid: Thyroid normal Carotids: no bruits Chest Chest palpation & inspection: no tenderness Resp Effort & Inspection: normal respiratory effort, no audible wheezes, not labored and no stridor Auscultation: no crackles, no rales, no rhonchi and no wheezes Cardio Jugular venous distension: no JVD Rate: regular rate, not bradycardic and not tachycardic Rhythm: regular rhythm Bruits: no carotid bruits Peripheral pulses: Peripheral pulses 2+ throughout GI Inspection: Yes normal to inspection, No abdominal wall ecchymosis and No visible herniation Palpation (GI): Soft to palpation, nontender, no guarding, not rigid and No hepatosplenomegaly present Auscultation: normoactive bowel sounds General: Yes no CVA tenderness Back/Spine/Pelvis Back: no CVA tenderness and No back tenderness Cervical Spine: cervical ROM normal Thoracic/Lumbar Spine: thoracic and lumbar spine normal to inspection, straight leg raise negative bilaterally, No thoraco-lumbar ROM limited and No lumbar spinal tenderness Skin Lesions: no lesions Rashes: no rashes Wounds: no wounds Neuro General: oriented to person, oriented to place, patient oriented x3, CN's II-XI intact bilaterally and No confusion Cranial nerves: Yes Equal, round and reactive pupils present and Yes Normal accommodation reflex present Cognition (Neuro): normal cognition Speech: No Abnormal speech present Gait exam (Neuro): Normal gait present Motor exam (neuro): 5/5 motor strength present throughout Extrem Right upper extremity: full ROM; no cyanosis Left upper extremity: full ROM; no cyanosis Right lower extremity: no edema Left lower extremity: no edema Psych Appearance: grossly normal Mental Status: mental status grossly normal Affect: normal affect Attitude: cooperative Thought process: Normal thought process present Office Procedures Flu Questionnaire Does the patient have a severe egg allergy?: No Immunizations Fluarix Triv [id number] (PF) 45 mcg (15 mcg x 3)/0.5 mL IM syringe Performing Provider: Rachid Skelton PA-C Performing Location: [facility] [place] [facility] Documented (not given) by: CRYSTAL Swann on 08/23/24 08:07 Reason Not Given: Patient Refused Assessment and Plan Assessment & Plan (1) Annual physical exam: Code(s): Z00.00 - Encounter for general adult medical examination without abnormal findings (2) Obese: Code(s): E66.9 - Obesity, unspecified Qualifiers: Obesity type: due to excess calories Obesity classification: adult class 3 (BMI >= 40) Serious obesity comorbidity presence: without serious comorbidity Body mass index: BMI 40.0-44.9 Qualified Code(s): E66.01 - Morbid (severe) obesity due to excess calories; Z68.41 - Body mass index [BMI] 40.0- 44.9, adult Plan: Have noted small amount of weight loss since last office visit.. Patient understands her BMI is over 30 will be being more physically active and better eating habits to reduce her weight. (3) Impaired glucose metabolism: Code(s): R73.09 - Other abnormal glucose Plan: Patient's fasting blood sugar remains slightly elevated. Most recent A1c is 6.1. She is not interested in starting any medication to help blood sugars.. She will work on being more physically active and adapting to better eating habits to reduce her weight. (4) JIM (generalized anxiety disorder): Code(s): F41.1 - Generalized anxiety disorder Plan: Patient's JIM-7 score positive for moderate anxiety. New since taking care of her grandchild whom is struggling in school. She is not interested in any medication or talking to a mental health therapist at this time. She hopes this gets better over time. Orders: Orders Influenza [id number] Immunization Today Z23 - Encounter for immunization Hemoglobin A1c Today R73.09 - Other abnormal glucose Comprehensive Sage. Panel Fast Today R73.09 - Other abnormal glucose Complete Blood Count no Diff Today R73.09 - Other abnormal glucose Patient Instructions: Goal: Reduce weight, reduce fasting blood sugar Barriers: Adherence to physical activity and healthy eating habits Coding Level of Care Code Est Pt Prev Care 40-64y(61723) Diagnoses Annual physical exam Z00.00 Class 3 severe obesity due to excess calories without serious comorbidity with body mass index (BMI) of 40.0 to 44.9 in adult E66.01; Z68.41 Obesity type: due to excess calories Obesity classification: adult class 3 (BMI >= 40) Serious obesity comorbidity presence: without serious comorbidity Body mass index: BMI 40.0-44.9 Impaired glucose metabolism R73.09 JIM (generalized anxiety disorder) F41.1 Additional Codes JIM-7 Assessment Billing - JIM-7 Assessment Tool: JIM-7 Assessment 37624 ([id number])
== END 2024-08-23 08:26 | disposition home or self-care (01) ==
PROVIDERS: PCP Physician Assistant; Visit Provider Physician Assistant
DX: Z00.00 Encounter for general adult medical examination without abnormal findings (principal); E66.01 Morbid (severe) obesity due to excess calories; Z68.41 Body mass index [BMI] 40.0-44.9, adult; R73.09 Other abnormal glucose; F41.1 Generalized anxiety disorder; Z23 Encounter for immunization

== ENCOUNTER → 2024-08-23 07:47 | Outpatient (BNVA) | payer BC, SELFPAY | PROVIDERS: PCP Physician Assistant; Visit Provider Physician Assistant | DX: Z00.01 Encounter for general adult medical examination with abnormal findings (principal); F41.1 Generalized anxiety disorder; E66.01 Morbid (severe) obesity due to excess calories; Z68.41 Body mass index [BMI] 40.0-44.9, adult; R73.09 Other abnormal glucose; Z28.21 Immunization not carried out because of patient refusal | CPT/HCPCS: 90471; 96127 ==

== ENCOUNTER 2025-02-27 07:25 | Outpatient (REF) | payer BC, SELFPAY ==
--- OUTSIDE RECORDS SUMMARY | 2025-02-27 07:28 | XMS_ITS ---
Author Name [facility] Organization Unknown Care Team Organization Name Specialty Phone Email Start Date End [facility] ([facility] 10/07/2024
== END 2025-02-27 07:26 | disposition home or self-care (01) ==
LOC: HO.MAMMO 07:25
PROVIDERS: PCP Physician Assistant; Visit Provider Physician Assistant
DX: Z12.31 Encounter for screening mammogram for malignant neoplasm of breast (principal)
CPT/HCPCS: 77063; 77067

== ENCOUNTER → 2025-02-27 07:30 | Outpatient (BNV) | payer BC, SELFPAY | PROVIDERS: PCP Physician Assistant; Visit Provider Internal Medicine | DX: Z12.31 Encounter for screening mammogram for malignant neoplasm of breast (principal) | CPT/HCPCS: 77063; 77067 ==

== ENCOUNTER 2025-06-22 07:46 | Outpatient (AMB) | payer BC, SELFPAY ==
--- OUTSIDE RECORDS SUMMARY | 2025-06-22 07:47 | XMS_ITS ---
Author Name [facility] Organization Unknown Care Team Organization Name Specialty Phone Email Start Date End [facility] Appellate Con[facility]ree ([facility]) 10/07/2024
[2025-06-22 08:01] VITALS: BP 130/68; BMI 42.9
--- NOTE | 2025-06-22 08:01 | MHC.OFFVIS ---
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 Ssn/Ssbn Assistant Navigator concerns: none. Currently sexually active. Denies any vaginal dryness or irritation. STI testing offered; she declined. Attempting to eat a healthy diet with calcium and vitamin D and stays active with some exercise. Last pap smear; 2021, negative. Last mammogram; 2024 . Colonoscopy is UTD. Pt. is adopted. 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 Current occupational exposures/hazards: No Cognitive needs: No Hearing needs: No Vision needs: Yes (glasses) Female Reproductive History Menstrual Age of Menarche: 10 control method: progestin IUCD Total pregnancies: 2 Full term: 2 Number of Living Children: 2 Date of last pap smear: 11/20/22 History of abnormal pap smear: No History of STI: No Date of Mammogram: 02/27/25 History of abnormal mammogram: No Review of Systems Const All systems reviewed & are unremarkable except as noted in HPI and below Reports as per HPI Eyes Reports no additional complaints ENT Reports no additional complaints Card Reports no additional complaints Resp Reports no additional complaints GI Reports as per HPI and Reports no additional complaints Reports as per HPI Musc Reports no additional complaints Skin/Breast Reports as per HPI Neuro Reports no additional complaints Psych Reports no additional complaints Endo Reports no additional complaints Srinath/Lymph Reports no additional complaints Aller/Immun Reports no additional complaints Physical Exam Vital Signs: Last Vital Signs BP 130/68 06/22/25 08:01 BMI result Body Mass Index 42.9 Const General: cooperative, healthy appearing, no acute distress, well developed and alert Orientation/consciousness: patient oriented x3 HEENT Head: Yes normal to inspection Eyes General: appearance normal, both eyes and all related structures Neck Neck: Yes normal visual inspection Thyroid: Thyroid normal Chest Chest palpation & inspection: normal inspection of the chest and other (no puckering, dimpling, peau de orange, retraction, discharge, masses) Breast/axilla inspection: normal inspection of the breasts Breast/axilla palpation: normal palpation of the breasts Resp Effort & Inspection: normal respiratory effort GI Inspection: Yes normal to inspection Palpation (GI): Soft to palpation Rectal Exam - Female: deferred General: Yes bladder normal to palpation External Female Exam: normal external appearance and normal appearance of the urethra Speculum Exam - Vagina: normal appearance of the vagina, normal palpation and normal vaginal discharge Speculum Exam - Cervix: normal appearance of the cervix and normal palpation Bimanual exam- vagina & uterus: normal bimanual exam, normal palpation, uterine size normal, bladder normal to palpation, normal palpation and non-tender Bimanual Exam- Adnexa, other: no masses Skin General skin exam: no rashes or lesions noted Rashes: no rashes Neuro General: patient oriented x3 Cognition (Neuro): normal cognition Extrem General: Yes normal to inspection Psych Attitude: cooperative Thought process: Normal thought process present Assessment & Plan Assessment & Plan (1) Encounter for well woman exam with routine gynecological exam: Code(s): Z01.419 - Encounter for gynecological examination (general) (routine) without abnormal findings Category: Medical Plan Discussed: Current recommendations for pap smears per ASCCP guidelines. Breast awareness, periodic self breast exams and yearly mammogram. Maintain a healthy lifestyle, well balanced diet including Calcium 1,200 mg and Vitamin D 600 IU daily, and routine exercise. Contact the office with any postmenopausal bleeding. Patient verbalizes understanding and agrees to the plan of care. She was given opportunity to ask questions and all questions were answered to the best of my ability. RTO in 1 year for annual correspondence school teacher exam. This note is constructed using voice recognition software. While every effort has been made to ensure accuracy, scrap sorter errors may have been included. Coding Level of Care Code Est Pt Prev Care 40-64y(31467) Diagnoses Encounter for well woman exam with routine gynecological exam Z01.419
== END 2025-06-22 08:33 | disposition home or self-care (01) ==
LOC: HO.HWS 07:46
PROVIDERS: PCP Physician Assistant; Visit Provider Advanced Practice Midwife
DX: Z01.419 Encounter for gynecological examination (general) (routine) without abnormal findings (principal)
CPT/HCPCS: 99396; 99459

== ENCOUNTER → 2025-07-16 06:52 | Outpatient (BNV) | payer BC, SELFPAY | PROVIDERS: Emergency Provider Emergency Medicine; PCP Physician Assistant; Visit Provider Specialist | DX: R05.9 Cough, unspecified (principal) | CPT/HCPCS: 71046 ==

== ENCOUNTER 2025-07-16 07:29 | Emergency (ER) | payer BC, SELFPAY ==
--- NOTE | ~2025-07-16 | XR_ITS ---
CLINICAL HISTORY: cough 2 view chest x-ray Comparison: None provided Findings: No consolidation or effusion. Heart size is normal. No acute fracture. IMPRESSION: 1. No acute findings. This document has been electronically signed by: Silver Casas MD on 07/16/2025 08:31:55
[2025-07-16 07:31] VITALS: BP 118/81; PULSE 98; RESP 18; TEMP 36.2; O2SAT 95; BMI 41.7
--- NOTE | 2025-07-16 08:26 | ED.URI ---
HPI - URI/Sore Throat General Chief Complaint: Upper Respiratory Symptoms Stated Complaint: Bad cough Time Seen by Provider: 07/16/25 07:51 Source: patient Mode of arrival: ambulatory Limitations: no limitations History of Present Illness HPI Narrative: This is a 54 years old presented to the emergency department with a chief complaint of cough congestion x1 week she was seen yesterday at the urgent care she was gout given antihistamine and Tessalon she is now better. Denies any fever chills vomiting and diarrhea. She was tested yesterday for COVID the test was negative MD elicited complaint: cough Onset (ago): week(s) (1) Consistency: constant Severity: mild Description of mucous: clear Able to tolerate fluids by mouth: Yes Exacerbating factors: nothing Relieving factors: nothing Associated symptoms: denies other symptoms Treatments prior to arrival: acetaminophen and cold medicine Related Data Home Medications ?Medication ?Instructions ?Recorded ?Confirmed levonorgestrel (Mirena) intrauterine 11/24/23 06/22/25 Previous Rx's ?Medication ?Instructions ?Recorded codeine 10 mg-guaifenesin 100 mg/5 5 ml PO Q6H PRN cough #118 mL 07/16/25 mL oral liquid doxycycline monohydrate 100 mg 100 mg PO BID 7 days #14 caps 07/16/25 capsule Allergies Allergy/AdvReac Type Severity Reaction Status Date / Time No Known Allergies (No Known Allergy Verified 07/16/25 07:33 Allergies*) Review of Systems Review of Systems: Yes all other systems are reviewed and are negative Respiratory: Respiratory: Reports as per [facility] Past Medical History Medical History Diverticular disease Surgical History History of tubal ligation Family History Family History Unknown Adopted person Social History Social History Housing: House Alcohol intake: current Alcohol intake frequency: holidays/special occasions only Patient Tobacco Use Status: Never used Tobacco Smoked in Last 30 Days: No e-Cigarette/Vaping Use: Never Used Second Hand Smoke Exposure: Yes Advance Directives: No Advance Directives Information Provided: No Do you have a plan to hurt others: No Plan service: No Current occupational status: employed 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 [employer] Current occupational exposures/hazards: No Cognitive needs: No Hearing needs: No Vision needs: Yes (glasses) Physical Exam Exam: Exam: She looks well she is not in distress Vital Signs: Vital Signs: Last Vital Signs Temp 97.2 F 07/16/25 10:02 Pulse 98 07/16/25 10:02 Resp 18 07/16/25 10:02 BP 118/81 07/16/25 10:02 Pulse Ox 95 07/16/25 10:02 O2 Del Method Room Air 07/16/25 10:02 BMI result Body Mass Index 41.7 Const: General: cooperative and comfortable Nutritional Appearance: average body habitus Orientation/consciousness: patient oriented x3 HEENT: Head: Yes normal to inspection Ears: hearing grossly normal bilaterally General nose exam: Normal external nose present Face and sinus: Yes normal facial exam Mouth: Normal oral and palatal mucosa present Throat: Yes posterior oropharynx normal Neck: Neck: Yes normal visual inspection Chest: Chest palpation & inspection: normal inspection of the chest Resp: Effort & Inspection: able to speak in complete sentences Auscultation: rhonchi Cardio: Jugular venous distension: no JVD Rate: regular rate Rhythm: regular rhythm GI: Inspection: Yes normal to inspection Palpation (GI): Soft to palpation Percussion: Yes normal to percussion Skin: General skin exam: no rashes or lesions noted Lesions: no lesions Rashes: no rashes Neuro: General: patient oriented x3 Course Reevaluation(s) Reevaluation #1: Chest x-ray normal, viral panel normal anticipate discharge at we will treat her as a possible bronchitis given the fact he has been going on for about a week she already seen in the urgent care with antihistamine no better Time: 09:54 Medical Decision Making Medical Decision Making [facility] Narrative: Patient presented to the emergency department with cough congestion we will obtain chest x-ray Differential Diagnosis Differential Diagnoses: The differential diagnosis associated with the presentation includes Pneumonia/bronchitis/URI Lab Data [facility] Lab Attestation statement: I reviewed the patient's lab results. Labs: Lab Results 07/16/25 Range/Units 07:37 Influenza Type A (PCR) NEGATIVE (Negative) Influenza Type B (PCR) NEGATIVE (Negative) RSV RNA Qual (PCR) NEGATIVE (Negative) SARS-CoV-2 RNA (RT-PCR) NEGATIVE (Negative) Independent Interpretation I performed an independent interpretation of an: Plain X-Ray Interpretation: Negative Radiology Impression Discussion of test interpretation with radiology: I have reviewed the radiologist's reading. Radiologist Impression: nad Discharge Plan Discharge Clinical Impression: Bronchitis Patient Disposition: Home, Self-Care Additional Instructions: Follow-up with your primary care physician return if worse Prescriptions: New doxycycline monohydrate 100 mg capsule 100 mg PO BID 7 Days Qty: 14 0RF codeine-guaifenesin 10-100 mg/5 mL liquid 5 ml PO Q6H PRN (Reason: cough) Qty: 118 0RF No Action Mirena 21 mcg/24 hours (8 yrs) 52 mg intrauterine device intrauterine Stand Alone Forms: Work/School Release Interventions: ED Discharge Assessment Last Done: 07/16/25 10:02 Discharge Date/Time: 07/16/25 10:02 Print Language: Georgian
[2025-07-16 08:34] LABS: Resp Syncy Virus RNA Qual PCR NEGATIVE (Negative); SARS COV2 PCR INHOUSE NEGATIVE (Negative)
[2025-07-16 10:02] VITALS: BP 118/81; PULSE 98; RESP 18; TEMP 36.2; O2SAT 95
== END 2025-07-16 10:02 | disposition home or self-care (01) ==
PROVIDERS: Emergency Provider Emergency Medicine; PCP Physician Assistant
DX: J40 Bronchitis, not specified as acute or chronic (principal); R05.9 Cough, unspecified; R09.81 Nasal congestion; Z03.818 Encounter for observation for suspected exposure to other biological agents ruled out
CPT/HCPCS: 71046; 87637; 99283; 99284